=== PATIENT | male | born 1980 | race Caucasian/White ===

== ENCOUNTER 2020-11-23 15:37 | Outpatient (REF) | payer OTHER, SELFPAY ==
--- NOTE | 2020-11-23 15:43 | XR_ITS ---
EXAMINATION: XR SHOULDER, RIGHT CLINICAL INFORMATION: Subluxation COMPARISON: None TECHNIQUE: Three views of the right shoulder. FINDINGS: Bone alignment is normal. No fracture or dislocation is seen. The joint spaces are normal. Soft tissues are normal. XR/XR shoulder RT min 2V IMPRESSION: Normal right shoulder.
== END 2020-11-23 15:38 | disposition home or self-care (01) ==
LOC: HO.XRAY 15:37
PROVIDERS: PCP Internal Medicine; Visit Provider Physician Assistant
DX: S43.001S Unspecified subluxation of right shoulder joint, sequela (principal)
CPT/HCPCS: 73030

== ENCOUNTER 2020-11-29 11:39 | Outpatient (REF) | payer OTHER, SELFPAY ==
--- NOTE | 2020-11-29 11:42 | MR_ITS ---
EXAMINATION: MR SHOULDER WITHOUT CONTRAST, RIGHT CLINICAL INFORMATION: Right shoulder pain. Decreased range of motion, popping/burning sensation. Subluxation following fall. COMPARISON: Right shoulder radiographs dated 11/23/2020. TECHNIQUE: MRI of the shoulder without contrast was performed on a high-field scanner. FINDINGS: ROTATOR CUFF: Supraspinatus tendinosis with bursal surface partial tearing measuring 1.1 x 1.6 cm (AP by ML). No definite full-thickness rotator cuff defect. No muscle atrophy or fatty infiltration. BICEPS: Normal. CORACOACROMIAL ARCH: The undersurface of the acromion is curved with anterior subacromial spurring. Mild acromioclavicular osteoarthritis. Mild fluid and edema within the subacromial subdeltoid bursa, consistent with mild bursitis. LABRUM/CAPSULE: Fluid extending through the undersurface of the posteroinferior and posterior labrum, consistent with mildly displaced tearing. GLENOHUMERAL JOINT/MARROW: Cortical depression with associated marrow edema at the anterior aspect of the humeral head measuring 1.7 x 1.7 cm (ML by CC), consistent with an impaction fracture. The humeral head is currently well seated within the glenoid. Small glenohumeral joint effusion. MR/MR shoulder RT wo con IMPRESSION: 1. Depressed fracture at the anterior aspect of the humeral head with prominent marrow edema as well as mildly displaced undersurface tearing of the posterior and posteroinferior labrum. Findings are consistent with prior posterior humeral head dislocation. The humeral head is currently well seated within the glenoid. Small glenohumeral joint effusion. 2. Supraspinous tendinosis with bursal surface partial tearing measuring 1.1 x 1.6 cm (AP by ML). 3. Mild acromioclavicular osteoarthritis with anterior subacromial spurring. Mild subacromial subdeltoid bursitis.
== END 2020-11-29 11:40 | disposition home or self-care (01) ==
LOC: HO.MRI 11:39
PROVIDERS: Visit Provider Physician Assistant
DX: S43.001S Unspecified subluxation of right shoulder joint, sequela (principal)
CPT/HCPCS: 73221